=== PATIENT | female | born 2000 | race Two or more races ===

== ENCOUNTER 2024-09-19 23:17 | Emergency (ER) | payer OTHER ==
[~2024-09-19] VITALS: Ht 172.7 cm; Wt 62.3 kg
--- NOTE | 2024-09-20 00:01 | Physician Documentation ---
History of Present Illness ~ Chief Complaint: Shoulder pain Stated Complaint: SHOULDER INJURY Time Seen by MD: 00:00 HPI 24-year-old female who presents with right shoulder pain after a fall The patient is visiting here from out of town. She was with her sister and friend, and was running, when she tripped and fell. She immediately had significant pain and loss of mobility to her right arm. Tells me she is unable to move her right arm. She is right-handed. No tingling or numbness or weakness to her right hand. No head injury or other injuries from the fall. Review of Systems Musculoskeletal: Reports: joint pain Physical Exam Vital Signs: Temperature: 98.7, Source: Temporal, Heart Rate: 74, Respiratory Rate: 16, BP: 115/70, Pulse Oximetry: 99, Weight: 62.270 Oxygen Flow Rate: 0 Physical Exam General: This is a thin healthy-appearing young woman, sitting in bed with her arm in an awkward position, family at bedside HEENT: Atraumatic, oropharynx is moist Heart: Regular rate and rhythm, normal-appearing peripheral perfusion to the ri ght hand Lungs: normal work of breathing, normal oxygen saturation on room air Extremities: Warm and well-perfused Right upper extremity: The patient has a an obvious deformity to the right shoulder, appears likely dislocated, she is unable to rotate at the shoulder or move it in any meaningful way without severe pain Neuro: Alert and oriented, no focal deficits Psychiatric: Anxious and appears in pain Procedures Joint Reduction Joint Reduction : Joint Reduction Site: Right shoulder dislocation reduction Reduction By: myself Conscious Sedation: Yes Medications/Dose: Propofol Reduction Attempts: 1 Pre-Procedure NV Exam: within normal limits Post-Procedure NV Exam: within normal limits Post Reduction Film: joint reduced Tolerated Procedure Well?: yes, no complications Procedure Note The patient was sedated with propofol as below. Using traction and counter traction, the shoulder was easily reduced to anatomic position. It was placed in a sling. The patient tolerated this well. No complications. Moderate Sedation : Pulmonary Assessment: Unremarkable Neurological Assessment: Unremarkable Cardiovascular Assessment: Unremarkable Other Systems: Unremarkable Hx of sedation difficulty?: No Medications: None ASA Class: I-normal healthy Informed Consent Informed consent obtained from the patient after discussing risks and benefits of the procedure Medication Used: Diprivan Staff Present: primary nurse, traffic technician Monitoring: vehicle monitor technician, Spo2, suction ready, BVM ready Tolerated Procedure Well?: yes, no complications Duration of Procedure (min): 15 Procedure Note The patient was sedated with propofol for a dislocated shoulder reduction. She tolerated this well, no complications, recovered uneventfully. Progress Results/Orders Results/Orders Orders - LIZZETTE REY MD Shoulder Ltd 1 View Only (09/20/24 01:39) Completed Orders - LIZZETTE REY MD Propofol Inj (Diprivan Inj) (09/20/24 01:05) Shoulder Ltd 1 View Only (09/20/24 01:39) Medications Received in ER Medications (Trade) Dose Ordered Sig/Delia Route PRN Reason Start Time Stop Time Status Last Admin Dose Admin (Zofran ODT tablet) 4 mg ONCE STAT PO 09/19/24 23:45 09/19/24 23:47 DC 09/20/24 00:11 4 MG (OXY IR tablet) 10 mg ONCE STAT PO 09/19/24 23:45 09/19/24 23:47 DC 09/20/24 00:12 10 MG Vital Signs 09/19/24 09/20/24 09/20/24 09/20/24 23:37 00:12 01:22 01:23 Temp 98.7 Pulse 74 69 71 Resp 16 18 16 16 B/P (MAP) 115/70 106/57 (73) 117/71 Pulse Ox 99 97 96 O2 Delivery Room Air O2 Flow Rate 0 0 0 09/20/24 09/20/24 09/20/24 09/20/24 01:28 01:33 01:45 02:00 Pulse 71 69 78 80 Resp 16 16 16 16 B/P (MAP) 117/71 120/73 110/62 (78) 119/54 (75) Pulse Ox 96 100 95 95 O2 Delivery Room Air Room Air Room Air Room Air O2 Flow Rate 2.0 2.0 2.0 0 09/20/24 09/20/24 09/20/24 02:15 02:30 02:52 Temp 98.7 Pulse 96 86 Resp 16 18 B/P (MAP) 125/72 (89) 116/72 (87) Pulse Ox 95 96 O2 Delivery Room Air Room Air O2 Flow Rate 0 0 EKG/XRAY/CT/US/VASC/MRI Bone/Soft Tissue X-Ray (Ext.) : Additional Comment Initial shoulder x-ray shows an anterior dislocation, with no fracture or other acute abnormality Postreduction shoulder x-ray shows good anatomic alignment without obvious fracture Medical Decision Making Differential Dx:Considerations: Include: AC separation, arthritis, Contusion, Dislocation, Fracture: Humerus, Fracture: Scapula, Fracture: Clavicle, Rotator cuff injury Additional Comments The patient presents with isolated right shoulder pain after a fall. On exam it appears likely dislocated, and x-ray confirms this. The patient was sedated with propofol and the shoulder was reduced successfully. She was placed in a sling. No complications. She will be discharged with home care instructions and a plan to follow up in orthopedic clinic when she returns home to [place]. No other acute injuries or concerns. Departure Time of Disposition: 02:35 Disposition: 01 HOME / SELF CARE / HOMELESS Impression: Primary Impression: Dislocation of shoulder region Discharge Instructions: Shoulder Dislocation Referrals: NO PRIMARY CARE PROVIDER (PCP) Education Educated: Patient, Family Educated regarding: diagnosis, treatment, need for follow up Signature Scribe Signature: na Attestation: LIZZETTE De La Cruz MD Sep 20, 2024 00:01
[2024-09-20] MEDS: ondansetron 4mg rapidly disintigrating tab PO STA (00:11)
[2024-09-20] MEDS: oxyCODONE IR 5mg (immed. release) tablet PO STA (00:12)
[2024-09-20] MEDS: propofol 10mg/ml 20ml vial IV ONE (01:28)
--- NOTE | 2024-09-20 01:36 | RADIOLOGY REPORT ---
CLINICAL INDICATION: R/O FX, DISLOCATION TECHNIQUE: OSCAR SHOULDER LTD 1 VIEW ONLY Comparison: None FINDINGS/IMPRESSION: : Anterior and inferior subluxation of the humeral head with respect to the glenoid process of the scap donald consistent with anterior shoulder dislocation. No evidence of fracture. Soft tissues are unremarkable.
--- NOTE | 2024-09-20 02:21 | RADIOLOGY REPORT ---
CLINICAL INDICATION: POST REDUCTION TECHNIQUE: DI SHOULDER LTD 1 VIEW ONLY Comparison: DI SHOULDER LTD 1 VIEW ONLY on DOS: 09/20/24 FINDINGS/IMPRESSION: : Successful reduction of anterior shoulder dislocation. No definite evidence of fracture. Soft tissues are unremarkable.
[2024-09-20 02:30] VITALS: BP 116/72; PULSE 86; RESP 18; O2SAT 96
[2024-09-20 02:52] VITALS: TEMP 98.7
== END 2024-09-20 02:53 | disposition home or self-care (01) ==
LOC: ER 23:18
DX: S43.084A Other dislocation of right shoulder joint, initial encounter (principal); W01.0XXA Fall on same level from slipping, tripping and stumbling without subsequent striking against object, initial encounter; Y93.02 Activity, running; Y92.89 Other specified places as the place of occurrence of the external cause; Y99.8 Other external cause status
CPT/HCPCS: 23650; 73020; 99152; 99285; J7030; A4565; A4620